=== PATIENT | female | born 1990 | race Caucasian/White ===

== ENCOUNTER 2021-05-19 15:34 | Inpatient (IN) | payer BC ==
[~2021-05-19] VITALS: Ht 157.5 cm; Wt 107.7 kg
[2021-05-19] VITALS (18 sets, daily range): BP systolic 106–139; BP diastolic 55–88; PULSE 78–117; TEMP 97.9–98.9
--- NOTE | 2021-05-19 15:45 | NUR ---
748994.2, G2L1 arrives on unit with c/o regular cts. Ambulatory to LDR4. Noted to be breathing through ctx. Denies any LOF or VB. Reports normal movement. Oriented to room and changes into own gown. 1548EFM explained and placed. VS obtained. 1552SVE . Plan of care discussed with pt and spouse who verbalize understanding. 1557Dr. Goodpasture updated on pt. See physician notification. 1600IV to left hand. Routine labs obtained. LR bolus infusing. 1622T. Dorothea [employer]ITT[employer] at bedside for epidural placement. 1633Epidural placed by Idris Piedra CRNA. See anesthesia record. FHR tracing intermittently at this time due to maternal position and habitus. 1640Pt wedge left. EFM adjusted and tracing well. Plan of care and safety precautions reviewed. Resting with call light within reach.
[2021-05-19 16:13] LABS: BASO # 0.1 K/mm3 (0.0-0.2); BASO % 0.4 % (0.0-2.0); EOS # 0.1 K/mm3 (0.0-0.7); EOS % 0.3 % (0.0-4.0); GRAN # 13.2 K/mm3 (1.4-6.5); GRAN % 75.1 % (42.2-75.2); HEMATOCRIT 37.5 % (37.0-47.0); HEMOGLOBIN 13.2 g/dl (12.5-16.0); LYMPH # 3.1 K/mm3 (1.2-3.4); LYMPH % 17.4 % (20.0-51.0); MEAN CELL VOLUME 89 fl (80.0-100.0); MEAN CORPUSCULAR HEMOGLOBIN 31 pg (27-31); MEAN CORPUSCULAR HGB CONC 35 g/dl (33.0-37.0); MEAN PLATELET VOLUME 10.3 fl (7.4-10.4); MONO # 1.1 K/mm3 (0.1-0.6); PLATELET COUNT 257 K/mm3 (130-400); REDCELL DISTRIBUTION WIDTH-CV 13.1 % (11.5-14.5)
[2021-05-19] MEDS ORDERED: PRENATA1 CTB PO (16:52)
[2021-05-19] MEDS ORDERED: PRENATAL DHA 200 SG PO (16:52)
--- NOTE | 2021-05-19 17:50 | NUR ---
1750Dr. Juanpastjossie to bedside and reviews plan of care with pt and spouse. SVE per provider C/+2. RN to begin pushing with pt. 1754Pt begins to push with contractions. Moves vertex well. Small crown noted. 1756Dr. Goopasture requested at bedside for delivery. 175Dr. Goodpasture to bedside. Pt repostioned in footplates. 175Spontaneous vaginal delivery of viable female infant. To mother's chest where dried and stimulated by nursery RN. 1801Cord clamped x2 and cut by father of infant. Care of assumed by Leana Bernardo RN. 1813Manual removal of placenta by Dr. Poole. Pitocin to 333ml/hr per protocol. 1815Bedside report to Ezequiel Christopher RN who assumes care of pt.
[2021-05-20 03:00] VITALS: BP 112/76; PULSE 74; TEMP 98.5
[2021-05-20 07:45] VITALS: BP 105/69; PULSE 67; TEMP 98.4
[2021-05-20] MEDS ORDERED: IBU800 M1 PO (10:10)
[2021-05-20 13:15] VITALS: BP 118/74; PULSE 78; TEMP 98
[2021-05-20 16:10] VITALS: BP 110/64; PULSE 78; TEMP 97.5
[2021-05-20 18:51] VITALS: BP 133/80; PULSE 84; TEMP 98.8
== END 2021-05-20 19:50 | disposition home or self-care (01) | DRG 807 ==
LOC: LDRO 15:34 → LDR 15:34 → LDRO 16:00 → LDR 16:00 → OB 16:00
PROVIDERS: ADMIT Student in an Organized Health Care Education/Training Program
PROC: 10E0XZZ Delivery of Products of Conception, External Approach (ICD-10-PCS; principal; 2021-05-19)
PROC: 10D17Z9 Manual Extraction of Products of Conception, Retained, Via Natural or Artificial Opening (ICD-10-PCS; 2021-05-19)
PROC: 0HQ9XZZ Repair Perineum Skin, External Approach (ICD-10-PCS; 2021-05-19)
DX: O43.123 Velamentous insertion of umbilical cord, third trimester (principal); Z37.0 Single live birth; O99.892 Other specified diseases and conditions complicating childbirth; D27.1 Benign neoplasm of left ovary; O99.214 Obesity complicating childbirth; O70.0 First degree perineal laceration during delivery; O76 Abnormality in fetal heart rate and rhythm complicating labor and delivery; O62.2 Other uterine inertia; Z3A.40 40 weeks gestation of pregnancy; Z23 Encounter for immunization
CPT/HCPCS: J0690; J2590; J2795; J7120